=== PATIENT | male | born 1990 | race African-American/Black ===

== ENCOUNTER 2016-10-07 14:19 | Emergency (ER) | payer MEDICAID ==
[~2016-10-07] VITALS: Ht 170.2 cm; Wt 90.7 kg
[2016-10-07 14:38] VITALS: PULSE 97; RESP 16; TEMP 97.8; O2SAT 97
--- NOTE | 2016-10-07 15:07 | NUR ---
Patient to ER bed 4 to gown for evaluation. Side rails up. Report given to Debby GRACE.
--- NOTE | 2016-10-07 15:08 | NUR ---
Dr Sigala at bedside examining patient
--- NOTE | 2016-10-07 15:10 | NUR ---
Pt brought by self, A&Ox4, pt c/o pelvic pain and pain with erection, skin pink and warm, cap refill <3, ambulatory, denies bleeding or discharge.
[2016-10-07] MEDS ORDERED: PHENAZOPYRIDINE HCL 100 MG TABLET PO ONE (15:15)
[2016-10-07] MEDS ORDERED: cefTRIAXone 1 GM in LIDOCAINE 1%, 20 ML MDV 2.1 ML IM ONE ×4 (15:15)
[2016-10-07 15:23] LABS: BILIRUBIN,URINE NEGATIVE (NEGATIVE); CLARITY/URINE SL CLOUDY (CLEAR); COLOR,URINE YELLOW (YELLOW); GLUCOSE,URINE NEGATIVE (NEGATIVE); KETONES,URINE NEGATIVE (NEGATIVE); LEUKOCYTE ESTERASE ,URINE 2+ (NEGATIVE); NITRITE, URINE NEGATIVE (NEGATIVE); PROTEIN URINE TRACE (NEGATIVE); UROBILINOGEN,URINE 0.2 (0.2-1.0)
[2016-10-07 15:29] LABS: BLOOD, URINE TRACE (NEGATIVE)
[2016-10-07 15:43] LABS: BACTERIA,URINE FEW /HPF (None Seen); WBC,URINE >100 /HPF (0-3)
[2016-10-07] MEDS ORDERED: AZITHROMYCIN 250 MG TABLET PO ONE (17:00)
[2016-10-07 17:01] VITALS: BP 132/84; PULSE 97; RESP 16; TEMP 97.8; O2SAT 97
--- NOTE | 2016-10-07 17:01 | NUR ---
Patient given written and verbal discharge instructions and verbalizes understanding. ER MD discussed with patient the results and treatment provided. . Patient in stable condition. ID arm band removed. . Patient educated on pain management and to follow up with PMD. Pain Scale 0/10. Opportunity for questions provided and answered.
== END 2016-10-07 17:01 | disposition home or self-care (01) ==
LOC: SED 14:19
DX: N39.0 Urinary tract infection, site not specified (principal); G20 Parkinson's disease; Z88.5 Allergy status to narcotic agent
CPT/HCPCS: 74000; 74176; 76870; 81000; 87086; 96372; 99285; J0696; J2001; Q0144

== ENCOUNTER 2016-10-24 12:53 | Emergency (ER) | payer MEDICAID ==
[~2016-10-24] VITALS: Ht 170.2 cm; Wt 90.7 kg
[2016-10-24 13:03] VITALS: BP 117/72; PULSE 90; RESP 16; TEMP 98; O2SAT 98
--- NOTE | 2016-10-24 13:06 | NUR ---
AMBULATED TO BED 3
--- NOTE | 2016-10-24 13:10 | NUR ---
Pt brought by self, A&Ox4, pt c/o rash on bilateral hands, denies SOB , states it maybe related to eating chicken, cap refill <3, ambulatory, respirations even and unlabored.
[2016-10-24] MEDS ORDERED: FAMOTIDINE 20 MG TABLET PO ONE (13:15)
[2016-10-24] MEDS ORDERED: DEXAMETHASONE SOD PHOSPHATE 10 MG/ML VIAL IM ONE (13:15)
[2016-10-24] MEDS ORDERED: DIPHENHYDRAMINE HCL 25 MG CAPSULE PO ONE (13:15)
--- NOTE | 2016-10-24 13:28 | NUR ---
Dr Hollingsworth at bedside examining patient
--- NOTE | 2016-10-24 14:03 | NUR ---
Patient given written and verbal discharge instructions and verbalizes understanding. ER MD discussed with patient the results and treatment provided. Patient in stable condition. ID arm band removed. Rx of Prednisone and Loratadine given. Patient educated on pain management and to follow up with PMD. Pain Scale 0/10. Opportunity for questions provided and answered.
[2016-10-24 14:05] VITALS: BP 116/72; PULSE 90; RESP 16; TEMP 98; O2SAT 98
== END 2016-10-24 14:05 | disposition home or self-care (01) ==
LOC: SED 12:53
DX: T78.1XXA Other adverse food reactions, not elsewhere classified, initial encounter (principal); R21 Rash and other nonspecific skin eruption; G20 Parkinson's disease; Z88.5 Allergy status to narcotic agent; X58.XXXA Exposure to other specified factors, initial encounter
CPT/HCPCS: 96372; 99283; J1100; Q0163

== ENCOUNTER 2016-11-22 17:34 | Emergency (ER) | payer MEDICAID ==
[~2016-11-22] VITALS: Ht 172.7 cm; Wt 97.5 kg
[2016-11-22 17:39] VITALS: BP_SYST 122
[2016-11-22 18:43] LABS: BILIRUBIN,URINE NEGATIVE (NEGATIVE); BLOOD, URINE NEGATIVE (NEGATIVE); CLARITY/URINE CLEAR (CLEAR); COLOR,URINE YELLOW (YELLOW); GLUCOSE,URINE NEGATIVE (NEGATIVE); KETONES,URINE NEGATIVE (NEGATIVE); LEUKOCYTE ESTERASE ,URINE NEGATIVE (NEGATIVE); NITRITE, URINE NEGATIVE (NEGATIVE); PROTEIN URINE NEGATIVE (NEGATIVE); UROBILINOGEN,URINE 0.2 (0.2-1.0)
== END 2016-11-22 18:55 | disposition left against medical advice (07) ==
LOC: SED 17:34
DX: L25.9 Unspecified contact dermatitis, unspecified cause (principal); L85.3 Xerosis cutis; G20 Parkinson's disease; Z53.20 Procedure and treatment not carried out because of patient's decision for unspecified reasons; Z88.5 Allergy status to narcotic agent
CPT/HCPCS: 36415; 81003; 86592; 87491; 87591; 99284